=== PATIENT | male | born 1985 | race Caucasian/White ===

== ENCOUNTER 2018-05-08 16:43 | Outpatient (CLI) | payer OTHER ==
--- NOTE | 2018-05-09 15:14 | XRAY Report ---
Reason: CHRONIC BILAT LOW BACK PAIN W/SCIATICA PRESSENCE Procedure Date: 05/08/2018 Accession Number: [id number] / [id number] Procedure: XR - Lumbar Spine Complete CPT Code: FULL RESULT: EXAM: LUMBOSACRAL SPINE RADIOGRAPHY. EXAM DATE: 05/08/2018 05:14 PM. CLINICAL HISTORY: Chronic bilateral low back pain with sciatica presence. COMPARISONS: None. TECHNIQUE: 3 views. FINDINGS: Alignment: 3 mm of grade 1 anterolisthesis of L5 on S1. Bilateral thinning of the pars at this level. Bones: Five [id number] lumbar vertebral bodies are present. No fractures or bone lesions. Disks: Normal. Disk heights are maintained. Facets: Unremarkable. Sacroiliac Joints: Unremarkable. Soft Tissues: Normal. The visualized bowel gas pattern is normal. IMPRESSION: 3 mm of grade 1 anterolisthesis of L5 on S1 with at least bilateral thinning of the pars. RADIA
== END 2018-05-08 16:44 | disposition home or self-care (01) ==
LOC: DI 16:43
PROVIDERS: ATTEND Family Medicine
DX: M54.40 Lumbago with sciatica, unspecified side (principal); G89.29 Other chronic pain; M53.87 Other specified dorsopathies, lumbosacral region
CPT/HCPCS: 72110

== ENCOUNTER 2022-10-20 08:00 | Outpatient (CLI) | payer OTHER ==
--- NOTE | 2022-10-20 16:52 | XRAY Report ---
PROCEDURE: Chest 2 View X-Ray INDICATIONS: COUGH/CHEST CONGESTION TECHNIQUE: 2 views of the chest were acquired. COMPARISON: None. FINDINGS: Surgical changes and devices: None. Lungs and pleura: No pleural effusions or pneumothorax. Lungs are clear. Elevated right hemidiaph ragm Mediastinum: Mediastinal contours appear normal. Heart size is normal. Bones and chest wall: No suspicious bony lesions. Overlying soft tissues appear unremarkable. IMPRESSION: No acute cardiopulmonary process. Reviewed by: Gustavo Virk MD on 10/20/2022 3:51 PM AKDT Approved by: Gustavo Virk MD on 10/20/2022 3:51 PM AKDT Station ID: [id number]
== END 2022-10-20 23:59 | disposition home or self-care (01) ==
LOC: DI.S 08:00
PROVIDERS: ATTEND Physician Assistant Medical
DX: R05.8 Other specified cough (principal)